=== PATIENT | female | born 1935 | race Caucasian/White ===

== ENCOUNTER 2017-11-03 10:16 | Outpatient (CLI) | payer MEDICARE, OTHER ==
[2017-11-03 16:18] LABS: CREATININE 1.3 mg/dL (0.4-1.0)
== END 2017-11-03 10:17 | disposition home or self-care (01) ==
LOC: LAB.R 10:16
PROVIDERS: ATTEND Orthopaedic Surgery
DX: Z01.812 Encounter for preprocedural laboratory examination (principal); M19.011 Primary osteoarthritis, right shoulder
CPT/HCPCS: 82565

== ENCOUNTER 2017-11-11 10:08 | Outpatient (CLI) | payer MEDICARE, OTHER ==
[2017-11-11] MEDS ORDERED: IOTHALAMATE MEGLUMINE 50 ML VIAL ONE (10:22)
[2017-11-11] MEDS ORDERED: BUFFERED LIDOCAINE 10 ML SYRINGE IU ONE (10:45)
[2017-11-11] MEDS ORDERED: IOTHALAMATE MEGLUMINE 50 ML VIAL IVP ONE ×2 (11:17→12:00)
[2017-11-11] MEDS: BUFFERED LIDOCAINE 10 ML SYRINGE IU ONE ×2 (11:19→11:20)
--- NOTE | 2017-11-11 13:26 | XRAY Report ---
FLUOROSCOPICALLY GUIDED RIGHT SHOULDER INJECTION FOR CT ARTHROGRAM: 11/11/2017 CLINICAL INDICATION: Arthritis. FINDINGS: Following obtaining informed consent, the patient's right shoulder was prepped and draped in the usual sterile fashion. The skin and soft tissues were the anesthetized with lidocaine. A spinal needle was inserted into the right glenohumeral joint, and following confirmation of needle positioning, a combination of iodinated contrast and lidocaine was injected intraarticularly. The patient tolerated the procedure well. No immediate complications. Spot image reveals no evidence of contrast extravasation. IMPRESSION: SUCCESSFUL RIGHT SHOULDER INJECTION FOR CT ARTHROGRAM. FLUOROSCOPY TIME: 37 seconds; 1 spot image obtained. TD: 11/11/2017 13:25 MTDDonnell
--- NOTE | 2017-11-11 14:24 | CT Report ---
EXAM: RIGHT SHOULDER CT ARTHROGRAM WITH CONTRAST EXAM DATE: 11/11/2017 11:47 AM. CLINICAL HISTORY: Arthritis of right shoulder region. COMPARISON: None. TECHNIQUE: Thin-section axial images were acquired of the shoulder after an arthrographic injection d ictated under a separate exam. Post-processing: Oblique coronal and sagittal reformats. Other: None. In accordance with CT protocol optimization, one or more of the following dose reduction techniques w ere utilized for this exam: automated exposure control, adjustment of mA and/or KV based on patient s ize, or use of iterative reconstructive technique. FINDINGS: Bones: There is moderate generalized osteopenia. There are no visible fractures. Acromioclavicular Region: The patient has a type II acromion. The acromioclavicular joint is normal. Contrast fills the subacromial bursa. Glenohumeral Joint: The glenohumeral joint space is obliterated. There are subchondral cysts and oste ophytes affecting both the humeral head and bony glenoid. The findings are consistent with severe ost eoarthritis. There is thickening of the synovium consistent with synovitis. Musculature: There is a full-thickness tear of the anterior fibers of supraspinatus measuring approxi mately 16 x 15 mm with mild atrophy. The remaining fibers appear partially torn. There is a high-grad e partial-thickness tear subscapularis. There is mild partial-thickness tearing of the humeral surfac e fibers of infraspinatus. Other: The visualized lungs are unremarkable. No lymphadenopathy in the visualized axilla. IMPRESSION: 1. Severe glenohumeral osteoarthritis. 2. Full-thickness tear of the anterior fibers of supraspinatus. High-grade partial-thickness tears of the remainder of the supraspinatus tendon. 3. High-grade partial-thickness tear of subscapularis. Low-grade partial thickness tear of infraspina tus. 4. Severe glenohumeral osteoarthritis with thickening of the synovium suggestive of synovitis. [facility] MUSCULOSKELETAL RADIOLOGY SECTION Referring Provider Line: [phone] SITE ID: [id number]
== END 2017-11-11 10:09 | disposition home or self-care (01) ==
LOC: DI 10:08
PROVIDERS: ATTEND Orthopaedic Surgery
DX: Z01.818 Encounter for other preprocedural examination (principal); M19.011 Primary osteoarthritis, right shoulder; M75.101 Unspecified rotator cuff tear or rupture of right shoulder, not specified as traumatic
CPT/HCPCS: 23350; 36415; 73201; 77002; 80048; 85025; Q9961

== ENCOUNTER 2017-11-11 11:20 | Outpatient (CLI) | payer MEDICARE, OTHER ==
[2017-11-11 11:37] LABS: BASOPHILS % (AUTO) 0.9 %; EOSINOPHILS # (AUTO) 0.1 10^3/uL (0.0-0.7); EOSINOPHILS % (AUTO) 1.9 %; HGB - HEMOGLOBIN 12.8 g/dL (12.0-16.0); LYMPHOCYTES # (AUTO) 1.4 10^3/uL (1.5-3.5); LYMPHOCYTES % (AUTO) 24.9 %; MEAN CORPUSCULAR HEMOGLOBIN 30.1 pg (27.0-31.0); MEAN CORPUSCULAR HGB CONC 34.1 g/dL (32.0-36.0); MEAN CORPUSCULAR VOLUME 88.4 fL (81.0-99.0); MEAN PLATELET VOLUME 7.1 fL (7.9-10.8); MONOCYTES # (AUTO) 0.3 10^3/uL (0.0-1.0); MONOCYTES % (AUTO) 5.8 %; NEUTROPHILS # (AUTO) 3.7 10^3/uL (1.5-6.6); NEUTROPHILS % (AUTO) 66.5 %; PLT - PLATELET COUNT 190 10^3/uL (130-450); RED BLOOD COUNT 4.26 10^6/uL (4.20-5.40); WHITE BLOOD COUNT 5.5 x10^3/uL (4.8-10.8)
[2017-11-11 11:45] LABS: CREATININE 1.1 mg/dL (0.4-1.0)
== END 2017-11-11 11:21 | disposition home or self-care (01) ==
LOC: LAB 11:20
PROVIDERS: ATTEND Orthopaedic Surgery
DX: Z01.818 Encounter for other preprocedural examination (principal)
CPT/HCPCS: 36415; 80048; 85025

== ENCOUNTER 2018-02-01 09:36 | Outpatient (CLI) | payer MEDICARE, OTHER ==
[2018-02-01 15:01] LABS: BASOPHILS # (AUTO) 0.1 10^3/uL (0.0-0.1); BASOPHILS % (AUTO) 1.1 %; EOSINOPHILS # (AUTO) 0.2 10^3/uL (0.0-0.7); EOSINOPHILS % (AUTO) 2.8 %; HGB - HEMOGLOBIN 12.5 g/dL (12.0-16.0); LYMPHOCYTES # (AUTO) 1.4 10^3/uL (1.5-3.5); LYMPHOCYTES % (AUTO) 24.4 %; MEAN CORPUSCULAR HEMOGLOBIN 28.7 pg (27.0-31.0); MEAN CORPUSCULAR VOLUME 87.1 fL (81.0-99.0); MEAN PLATELET VOLUME 8.4 fL (7.9-10.8); MONOCYTES # (AUTO) 0.3 10^3/uL (0.0-1.0); MONOCYTES % (AUTO) 4.6 %; NEUTROPHILS # (AUTO) 3.8 10^3/uL (1.5-6.6); NEUTROPHILS % (AUTO) 67.1 %; PLT - PLATELET COUNT 208 10^3/uL (130-450); RED BLOOD COUNT 4.34 10^6/uL (4.20-5.40); RED CELL DISTRIBUTION WIDTH 13.4 % (12.0-15.0); WHITE BLOOD COUNT 5.6 x10^3/uL (4.8-10.8)
[2018-02-01 15:17] LABS: ALBUMIN 3.6 g/dL (3.2-5.5); ALBUMIN/GLOBULIN RATIO 1.4 (1.0-2.2); ALKALINE PHOSPHATASE 61 IU/L (42-121); ALT ALANINE AMINOTRANSFERASE 19 IU/L (10-60); AST ASPARTATE AMINOTRANSFERASE 25 IU/L (10-42); BILIRUBIN,TOTAL 0.9 mg/dL (0.2-1.0); BUN - BLOOD UREA NITROGEN 27 mg/dL (6-20); CARBON DIOXIDE - CO2 28 mmol/L (21-32); CHLORIDE 99 mmol/L (101-111); CHOL/HDL RATIO 2.8 (<4.4); CHOLESTEROL 232 mg/dL; CREATININE 1.2 mg/dL (0.4-1.0); GFR - MDRD 43 (>89); GLUCOSE 79 mg/dL (70-100); HDL CHOLESTEROL 84 mg/dL; LDL CHOLESTEROL,CALCULATED 119 mg/dL; LDL/HDL RATIO 1.4 (<4.4); SODIUM 137 mmol/L (135-145); TOTAL PROTEIN 6.2 g/dL (6.7-8.2); VLDL CHOLESTEROL 29 mg/dL
== END 2018-02-01 09:37 ==
LOC: LAB.R 09:36
PROVIDERS: ATTEND Internal Medicine
DX: I12.9 Hypertensive chronic kidney disease with stage 1 through stage 4 chronic kidney disease, or unspecified chronic kidney disease (principal); N18.9 Chronic kidney disease, unspecified; R76.0 Raised antibody titer; R60.9 Edema, unspecified; E78.5 Hyperlipidemia, unspecified
CPT/HCPCS: 80053; 80061; 83721; 84443; 85025

== ENCOUNTER 2018-03-29 18:58 | Emergency (ER) | payer MEDICARE, OTHER ==
[2018-03-29] MEDS ORDERED: ACETAMINOPHEN 325 MG TABLET PO STA (20:14)
--- NOTE | 2018-03-29 20:16 | ED Physician Documentation ---
History of Present Illness - Stated complaint Stated Complaint: GLF - Chief complaint Chief Complaint: Laceration - History obtained from History obtained from: Patient, Family - History of Present Illness Timing: How many hours ago (2) Pain level max: 7 Pain level now: 5 Improved by: nothing Worsened by: nothing - Additonal information Additional information: Patient is an 82-year-old female who presents to the emergency department after tripping in her raspberries today and hitting a fence post. Unsure if she lost consciousness. Does have a headache and posterior neck pain. No numbness or tingling. Also sustained a laceration to the left ear. States her tetanus shot is up-to-date. Review of Systems Ten Systems: 10 systems reviewed and negative Constitutional: denies: Fever, Chills Nose: denies: Rhinorrhea / runny nose, Congestion Respiratory: denies: Cough GI: denies: Abdominal Pain, Nausea, Vomiting, Diarrhea : denies: Dysuria, Frequency, Hesitancy Skin: denies: Rash Musculoskeletal: reports: Neck pain (mild mid c-spine pain). denies: Back pain Neurologic: denies: Generalized weakness, Focal weakness, Numbness, Confused, Altered mental status PD PAST MEDICAL HISTORY - Past Medical History Past Medical History: Yes Cardiovascular: Hypertension - Past Surgical History Past Surgical History: No - Present Medications Home Medications: Ambulatory Orders Medication Instructions Recorded Confirmed Furosemide 80 mg PO DAILY 08/27/14 09/03/14 Gabapentin 300 mg PO TID 08/27/14 09/03/14 Hydroxychloroquine Sulfate 200 mg PO BID 08/27/14 09/03/14 Losartan [Cozaar] 25 mg PO QPM 08/27/14 09/03/14 Naproxen Sodium [Aleve] 220 mg PO BID PRN 08/27/14 08/27/14 PARoxetine HCl [Paroxetine HCl] 10 mg PO DAILY 08/27/14 09/03/14 Pravastatin Sodium 40 mg PO QPM 08/27/14 09/03/14 Tramadol HCl [Ultram] 50 mg PO TID PRN 08/27/14 09/03/14 Loperamide [Imodium] 2 gm ORAL DAILY 09/03/14 09/03/14 Cephalexin [Keflex] 500 mg PO Q6H #28 capsule 03/29/18 - Allergies Allergies/Adverse Reactions: Allergies Allergy/AdvReac Type Severity Reaction Status Date / Time codeine AdvReac Intermediate Hallucinati Verified 03/29/18 19:06 ons - Social History Does the pt smoke?: No Does the pt have substance abuse?: No - Family History Family history: reports: Non contributory PD ED PE NORMAL - Vitals Vital signs reviewed: Yes - General General: Alert and oriented X 3, No acute distress - HEENT HEENT: Atraumatic, PERRL, Moist mucous membranes, Pharynx benign, Other (L ear - 2x2cm circular laceration to superior pinna. cartilage involved. posterior aspect intact) - Neck Neck: Other (mild mid c-spine ttp. no stepoff or deformity. ) - Cardiac Cardiac: RRR, Strong equal pulses - Respiratory Respiratory: No respiratory distress, Clear bilaterally - Abdomen Abdomen: Soft, Non tender, Non distended - Back Back: No spinal TTP - Derm Derm: Warm and dry, No rash - Extremities Extremities: No deformity, No tenderness to palpate - Neuro Neuro: Alert and oriented X 3 - Psych Psych: Normal mood, Normal affect Results - Vitals Vitals: Vital Signs - 24 hr 03/29/18 03/29/18 19:02 23:10 Temperature 36.8 C Heart Rate 102 H 74 Respiratory 18 16 Rate Blood Pressure 150/92 H 185/94 H O2 Saturation 98 99 Oxygen O2 Source [] Room air O2 Source [] Room air O2 Source Room air - Rads (name of study) head CT Radiology: Prelim report reviewed, EMP read contemporaneously, See rad report ( No acute abnormality) Cervical spine CT Radiology: Prelim report reviewed, EMP read contemporaneously, See rad report ( No acute abnormality) Procedures - Laceration (location) L ear Length in cm: 4 Wound type: Curved, Flap, Clean Neurovascular status: Sensory intact, Vascular intact Tendon involvement: Other (auricular cartilage involved) Anesthesia: OTH (topical lidocaine) Wound Preparation: Irrigated copiously NS, Wound explored, To the base Skin layer closure: Nylon, Dermabond, Size #-0 - enter number (6), Sutures - enter # (5) Other: Patient tolerated well, No complications, Neurovascular intact, Dressing applied, Tetanus UTD Complexity: Simple PD MEDICAL DECISION MAKING - ED course Complexity details: reviewed results, re-evaluated patient, considered differential, d/w patient, d/w family, d/w solutions architect consultant ED course: Patient is an 82-year-old female who presents after a fall today. She sustained a laceration of the left pinna that involved the auricular cartilage. This was repaired in the emergency department and cartilage appears to all be covered with skin at this point. Dermabond was also utilized for a portion of the wound. I did discuss the case with Dr. Cedillo, ENT labor union business representative who will follow her up in the office in the next day or 2 to check on the wound and see if it needs revision. Will also place her on Keflex. Warnings of infection and instructions on wound care given at bedside. Also counseled on how to minimize scarring. No acute findings on head CT or cervical spine CT. Patient and family counseled regarding signs and symptoms for which I believe and urgent re- evaluation would be necessary. Patient with good understanding of and agreement to plan and is comfortable going home at this time This document was made in part using voice recognition software. While efforts are made to proofread this document, sound alike and grammatical errors may occur. - Sepsis Event Vital Signs: Vital Signs - 24 hr 03/29/18 03/29/18 19:02 23:10 Temperature 36.8 C Heart Rate 102 H 74 Respiratory 18 16 Rate Blood Pressure 150/92 H 185/94 H O2 Saturation 98 99 Oxygen O2 Source [] Room air O2 Source [] Room air O2 Source Room air Departure - Departure Disposition: 01 Home, Self Care Clinical Impression: Head injury Qualifiers: Encounter type: initial encounter Qualified Code(s): S09.90XA - Unspecified injury of head, initial encounter Laceration of ear Qualifiers: Encounter type: initial encounter Laterality: left Qualified Code(s): S01.312A - Laceration without foreign body of left ear, initial encounter Condition: Good Instructions: ED Laceration All Follow-Up: Dinh Bradley MD [Primary Care Provider] - [facility] [Provider Group] - Within 3 Days Prescriptions: Cephalexin [Keflex] 500 mg PO Q6H #28 capsule Comments: Take all antibiotics until gone. Make sure to follow up closely with ENT for further care. Return if you worsen. Discharge Date/Time: 03/29/18 23:45
--- NOTE | 2018-03-29 21:19 | CT Report ---
Procedure Date: 03/29/2018 Accession Number: [id number] / [id number] Procedure: CT - Head W/O CPT Code: FULL RESULT: EXAM: CT HEAD EXAM DATE: 03/29/2018 08:39 PM. CLINICAL HISTORY: Fall, head injury, headache. COMPARISON: None. TECHNIQUE: Multiaxial CT images were obtained from the foramen magnum to the vertex. Reformats: Sagittal and coronal. IV contrast: None. In accordance with CT protocol optimization, one or more of the following dose reduction techniques were utilized for this exam: automated exposure control, adjustment of mA and/or KV based on patient size, or use of iterative reconstructive technique. FINDINGS: Parenchyma: No intraparenchymal hemorrhage. No evidence of mass, midline shift, or CT findings of acute infarction. Hammond-white differentiation is distinct. Diffuse chronic microangiopathic white matter changes are evident. Extraaxial Spaces: Normal for age. No subdural or epidural collections identified. Ventricles: The ventricles and cortical sulci are enlarged, consistent with age-related tissue loss. Sinuses and orbits: Imaged paranasal sinuses, orbits, and mastoids show no significant abnormality. Bones: No evidence of fracture or calvarial defect. Other: Status post bilateral cataract procedures. Small left parietal scalp soft tissue laceration and hematoma. No radiopaque foreign bodies are noted. IMPRESSION: Generalized age-related cortical atrophic changes without evidence of acute intracranial abnormality. [facility]
--- NOTE | 2018-03-29 21:43 | CT Report ---
Procedure Date: 03/29/2018 Accession Number: [id number] / [id number] Procedure: CT - Cervical Spine W/O CPT Code: FULL RESULT: EXAM: CT CERVICAL SPINE WITHOUT CONTRAST. DATE: 03/29/2018 08:58 PM. HISTORY: Fall, neck pain. COMPARISONS: None. TECHNIQUE: Thin-section axial images were acquired of the cervical spine without contrast. Post-processing: Coronal and sagittal reformats. Other: None. In accordance with CT protocol optimization, one or more of the following dose reduction techniques were utilized for this exam: automated exposure control, adjustment of mA and/or KV based on patient size, or use of iterative reconstructive technique. FINDINGS: Alignment: 2 mm of C3 on C4 anterolisthesis, 2 mm of C4 on C5 and C6 on C7 retrolisthesis are likely degenerative. Gentle convex to the left curvature of the mid cervical spine. Bones: Osteopenic patient. No acute fracture or bone lesion. Interspace Levels/Facets: C1-C2: Moderate narrowing within the C1 arch and dens articulation with partially calcified pannus surrounding the tip of the dens. C2-C3: Moderate disk narrowing. No significant central canal or foraminal stenosis. C3-C4: Mild disk narrowing. No significant central canal or foraminal stenosis. Mild bilateral facet arthropathy. C4-C5: Marked disk narrowing with prominent disk osteophyte complex and uncovertebral joint hypertrophy results in [id number] right foraminal stenosis. Mild left facet arthropathy. C5-C6: Moderate to marked disk narrowing with prominent disk osteophyte complex and uncovertebral joint hypertrophy results in mild right foraminal stenosis. C6-C7: Marked disk narrowing with irregularity of the endplates noted at C6-C7. No significant central canal or foraminal stenosis. C7-T1: Mild disk narrowing. No significant central canal or foraminal stenosis. Musculature: Normal. No fatty atrophy. Other: The paravertebral and prevertebral soft tissues are unremarkable. The lung apices are clear. IMPRESSION: 1. No acute fracture. 2. Multilevel degenerative disk disease as above. [facility]
[2018-03-29] MEDS ORDERED: LIDOCAINE JELLY 2% 5 ML TUBE TOP STA (22:04)
[2018-03-29] MEDS ORDERED: LIDOCAINE 2% 10 ML MDV SUBQ STA (22:55)
[2018-03-29 23:11] VITALS: BP 185/94
[2018-03-29] MEDS ORDERED: cephALEXin 250 MG CAPSULE PO STA (23:25)
== END 2018-03-29 23:45 | disposition home or self-care (01) ==
LOC: ED 18:58
DX: S09.90XA Unspecified injury of head, initial encounter (principal); S01.312A Laceration without foreign body of left ear, initial encounter; W01.198A Fall on same level from slipping, tripping and stumbling with subsequent striking against other object, initial encounter; Y93.01 Activity, walking, marching and hiking; Y92.89 Other specified places as the place of occurrence of the external cause
CPT/HCPCS: 12013; 70450; 72125; 99283; A9270; J3490; 99284

== ENCOUNTER 2018-06-06 10:19 | Outpatient (CLI) | payer MEDICARE, OTHER ==
[~2018-06-06 10:19] MED LIST: IOTHALAMATE MEGLUMINE 50 ML VIAL ONE
[2018-06-06] MEDS ORDERED: BUFFERED LIDOCAINE 10 ML SYRINGE IU ONE ×2 (14:34)
[2018-06-06] MEDS: IOTHALAMATE MEGLUMINE 50 ML VIAL IVP ONE ×2 (14:40→14:53)
--- NOTE | 2018-06-06 16:33 | XRAY Report ---
Reason: ARTHRITIS OF LT SHOULDER Procedure Date: 06/06/2018 Accession Number: [id number] / [id number] Procedure: FL - Arthrogram Needle Placement CPT Code: FULL RESULT: EXAM: RIGHT/LEFT SHOULDER ARTHROGRAPHIC INJECTION WITH FLUOROSCOPIC GUIDANCE EXAM DATE: 06/06/2018 11:45 AM. CLINICAL HISTORY: Arthritis of left shoulder. COMPARISON: None. TECHNIQUE: The risks, benefits, and alternatives of the procedure were discussed with the patient. All questions were answered. Written and verbal consent were obtained. The glenohumeral joint was marked under fluoroscopy and prepped and draped in a sterile manner. Local anesthesia was performed with 1% lidocaine. A 22-gauge needle was then inserted into the glenohumeral joint. 10 mL of a solution containing 75% 1% lidocaine, 25% iodinated contrast was then injected. The needle was removed without immediate complication. Other: None. Fluoroscopy Time: 0.2 minutes. FINDINGS: Bones and joints: Left hemiarthroplasty. Injection: Fluoroscopic images demonstrate needle placement and contrast in the glenohumeral joint. Contrast is noted to apparently freely leave the joint capsule. IMPRESSION: Successful fluoroscopically guided arthrographic injection of the shoulder. [facility]
--- NOTE | 2018-06-07 19:48 | CT Report ---
Reason: ARTHROGRAM - ARTHRITIS OF LT SHOULDER Procedure Date: 06/06/2018 Accession Number: [id number] / [id number] Procedure: CT - Upper Extremity Left W/ CPT Code: FULL RESULT: EXAM: LEFT SHOULDER CT ARTHROGRAM WITH CONTRAST. EXAM DATE: 06/06/2018 11:37 AM. CLINICAL HISTORY: Arthrogram - arthritis of left shoulder. COMPARISON: None. TECHNIQUE: Thin-section axial images were acquired of the shoulder after an arthrographic injection dictated under a separate exam. Post-processing: Oblique coronal and sagittal reformats. Other: None. In accordance with CT protocol optimization, one or more of the following dose reduction techniques were utilized for this exam: automated exposure control, adjustment of mA and/or KV based on patient size, or use of iterative reconstructive technique. FINDINGS: Bones: Streak artifact from resurfacing device at the humeral head mildly limits evaluation. No gross lucency adjacent to the prosthesis. No fracture. Acromioclavicular Region: Type II acromion. Postsurgical change versus mechanical wear at the undersurface of the acromion. Mild degenerative change at the acromioclavicular joint. Glenohumeral Joint: Large amount of contrast within the joint. Mild synovitis. No focal loose bodies. Minimal superior subluxation of the humeral head. Mild mechanical wear at the glenoid. Musculature: Evaluation limited due to artifact and absence of a noncontrast preinjection scan. No gross joint-sided tear of the supraspinatus or infraspinatus tendons. Suggestion of contrast imbibition at the mid to superior insertion subscapularis tendon. No focal fatty atrophy. Other: The visualized lungs are unremarkable. No lymphadenopathy in the visualized axilla. IMPRESSION: 1. Streak artifact from humeral head resurfacing device mildly limits evaluation. 2. No lucency adjacent to the prosthesis. 3. Mild mechanical wear at the glenoid. 4. Diffuse glenohumeral synovitis. 5. No gross joint-sided tear of the supraspinatus or infraspinatus tendons. 6. Suggestion of partial thickness undersurface tear superior insertion subscapularis tendon. [facility] MUSCULOSKELETAL RADIOLOGY SECTION
== END 2018-06-06 10:20 | disposition home or self-care (01) ==
LOC: DI 10:19
PROVIDERS: ATTEND Orthopaedic Surgery
DX: M19.012 Primary osteoarthritis, left shoulder (principal); M65.812 Other synovitis and tenosynovitis, left shoulder
CPT/HCPCS: 73201; 77002; Q9961

== ENCOUNTER 2018-06-21 10:01 | Outpatient (CLI) | payer MEDICARE, OTHER ==
--- NOTE | 2018-06-22 11:31 | Mammography Report ---
Reason: SCREENING MAMMOGRAM Procedure Date: 06/21/2018 Accession Number: [id number] / [id number] Procedure: [facility] - Screening Mammo Dig Bilat CPT Code: FULL RESULT: EXAM: Screening Mammo Dig Bilat DATE: 06/21/2018 10:57 AM CLINICAL HISTORY: Routine screening TECHNIQUE: Bilateral CC and MLO views were obtained. COMPARISON: 07/06/2016, 01/11/2014, 06/21/2011 and 02/27/2010 FINDINGS: There are scattered fibroglandular densities. There is no significant interval change. No suspicious masses, clustered microcalcifications, or regions of architectural distortion are identified. Scattered benign-appearing calcifications are stable. IMPRESSION: Benign findings RECOMMENDATION: Routine annual screening unless otherwise clinically indicated. BIRADS CATEGORY 2: Benign findings STANDARD QUALIFYING STATEMENTS: 1. This examination was reviewed with the aid of Computer-Aided Detection (CAD). 2. A negative or benign imaging report should not delay biopsy if clinically suspicious findings are present. Consider surgical consultation if warrented. More than 5% of cancers are not identified by imaging. 3. Dense breasts may obscure an underlying neoplasm.
== END 2018-06-21 10:02 | disposition home or self-care (01) ==
LOC: DI 10:01
PROVIDERS: ATTEND Internal Medicine
DX: Z12.31 Encounter for screening mammogram for malignant neoplasm of breast (principal)
CPT/HCPCS: 77067

== ENCOUNTER 2019-03-12 11:11 | Outpatient (CLI) | payer MEDICARE, OTHER ==
[2019-03-12 11:26] LABS: BASOPHILS # (AUTO) 0.1 10^3/uL (0.0-0.1); BASOPHILS % (AUTO) 1.1 %; EOSINOPHILS # (AUTO) 0.2 10^3/uL (0.0-0.7); EOSINOPHILS % (AUTO) 2.6 %; HGB - HEMOGLOBIN 12.2 g/dL (12.0-16.0); LYMPHOCYTES # (AUTO) 1.2 10^3/uL (1.5-3.5); LYMPHOCYTES % (AUTO) 19.3 %; MEAN CORPUSCULAR HEMOGLOBIN 29.6 pg (27.0-31.0); MEAN CORPUSCULAR HGB CONC 32.3 g/dL (32.0-36.0); MEAN CORPUSCULAR VOLUME 91.7 fL (81.0-99.0); MONOCYTES # (AUTO) 0.2 10^3/uL (0.0-1.0); MONOCYTES % (AUTO) 3.6 %; NEUTROPHILS # (AUTO) 4.7 10^3/uL (1.5-6.6); NEUTROPHILS % (AUTO) 73.2 %; PLT - PLATELET COUNT 192 10^3/uL (130-450); RED BLOOD COUNT 4.12 10^6/uL (4.20-5.40); WHITE BLOOD COUNT 6.4 x10^3/uL (4.8-10.8)
[2019-03-12 11:46] LABS: ALBUMIN 3.6 g/dL (3.2-5.5); ALBUMIN/GLOBULIN RATIO 1.4 (1.0-2.2); BILIRUBIN,TOTAL 0.7 mg/dL (0.2-1.0); CALCIUM 9.1 mg/dL (8.5-10.3); CREATININE 1.2 mg/dL (0.4-1.0); TOTAL PROTEIN 6.2 g/dL (6.7-8.2)
[2019-03-12 12:53] LABS: THYROID STIMULATING HORMONE 4.27 uIU/mL (0.34-5.60)
[2019-03-12 12:55] LABS: FREE T4 (FREE THYROXINE) 0.93 ng/dL (0.58-1.64)
== END 2019-03-12 11:12 | disposition home or self-care (01) ==
LOC: LAB 11:11
PROVIDERS: ATTEND Family Medicine
DX: R76.0 Raised antibody titer (principal); R60.9 Edema, unspecified
CPT/HCPCS: 36415; 80053; 84439; 84443; 84481; 85025

== ENCOUNTER 2019-08-23 14:53 | Outpatient (CLI) | payer MEDICARE, OTHER ==
[2019-08-23 15:17] LABS: BASOPHILS # (AUTO) 0.1 10^3/uL (0.0-0.1); BASOPHILS % (AUTO) 1.2 %; EOSINOPHILS # (AUTO) 0.2 10^3/uL (0.0-0.7); EOSINOPHILS % (AUTO) 3.5 %; HGB - HEMOGLOBIN 12.1 g/dL (12.0-16.0); LYMPHOCYTES # (AUTO) 1.5 10^3/uL (1.5-3.5); LYMPHOCYTES % (AUTO) 26.7 %; MEAN CORPUSCULAR HEMOGLOBIN 29.5 pg (27.0-31.0); MEAN CORPUSCULAR HGB CONC 31.8 g/dL (32.0-36.0); MEAN CORPUSCULAR VOLUME 92.9 fL (81.0-99.0); MEAN PLATELET VOLUME 8.7 fL (7.9-10.8); MONOCYTES # (AUTO) 0.4 10^3/uL (0.0-1.0); MONOCYTES % (AUTO) 6.8 %; NEUTROPHILS # (AUTO) 3.6 10^3/uL (1.5-6.6); NEUTROPHILS % (AUTO) 61.6 %; PLT - PLATELET COUNT 185 10^3/uL (130-450); RED CELL DISTRIBUTION WIDTH 13.6 % (12.0-15.0); WHITE BLOOD COUNT 5.8 x10^3/uL (4.8-10.8)
[2019-08-23 15:30] LABS: CALCIUM 9.2 mg/dL (8.5-10.3); CREATININE 1.1 mg/dL (0.4-1.0)
== END 2019-08-23 14:54 | disposition home or self-care (01) ==
LOC: LAB 14:53
PROVIDERS: ATTEND Physician Assistant
DX: Z01.818 Encounter for other preprocedural examination (principal); M17.12 Unilateral primary osteoarthritis, left knee
CPT/HCPCS: 36415; 80048; 85025; 93005

== ENCOUNTER 2019-10-03 09:28 | Outpatient (CLI) | payer MEDICARE, OTHER ==
[2019-10-03 09:49] LABS: BASOPHILS # (AUTO) 0.1 10^3/uL (0.0-0.1); BASOPHILS % (AUTO) 1.2 %; EOSINOPHILS # (AUTO) 0.4 10^3/uL (0.0-0.7); EOSINOPHILS % (AUTO) 7.7 %; HGB - HEMOGLOBIN 10.7 g/dL (12.0-16.0); LYMPHOCYTES % (AUTO) 18.8 %; MEAN CORPUSCULAR HEMOGLOBIN 29.4 pg (27.0-31.0); MEAN CORPUSCULAR HGB CONC 31.8 g/dL (32.0-36.0); MEAN CORPUSCULAR VOLUME 92.6 fL (81.0-99.0); MEAN PLATELET VOLUME 8.5 fL (7.9-10.8); MONOCYTES # (AUTO) 0.4 10^3/uL (0.0-1.0); MONOCYTES % (AUTO) 7.9 %; NEUTROPHILS # (AUTO) 3.2 10^3/uL (1.5-6.6); PLT - PLATELET COUNT 198 10^3/uL (130-450); RED BLOOD COUNT 3.64 10^6/uL (4.20-5.40); RED CELL DISTRIBUTION WIDTH 13.2 % (12.0-15.0)
[2019-10-03 09:59] LABS: CALCIUM 8.6 mg/dL (8.5-10.3); CREATININE 1.3 mg/dL (0.4-1.0)
== END 2019-10-03 09:29 | disposition home or self-care (01) ==
LOC: LAB 09:28
PROVIDERS: ATTEND Family Medicine
DX: E78.5 Hyperlipidemia, unspecified (principal); Z96.652 Presence of left artificial knee joint; I10 Essential (primary) hypertension
CPT/HCPCS: 36415; 80048; 85025

== ENCOUNTER 2020-02-19 11:15 | Outpatient (CLI) | payer MEDICARE, OTHER ==
[2020-02-19 11:42] LABS: BASOPHILS # (AUTO) 0.1 10^3/uL (0.0-0.1); EOSINOPHILS # (AUTO) 0.3 10^3/uL (0.0-0.7); EOSINOPHILS % (AUTO) 3.9 %; HGB - HEMOGLOBIN 9.3 g/dL (12.0-16.0); LYMPHOCYTES # (AUTO) 1.1 10^3/uL (1.5-3.5); LYMPHOCYTES % (AUTO) 15.1 %; MEAN CORPUSCULAR HEMOGLOBIN 25.3 pg (27.0-31.0); MEAN CORPUSCULAR HGB CONC 30.1 g/dL (32.0-36.0); MEAN PLATELET VOLUME 8.7 fL (7.9-10.8); MONOCYTES # (AUTO) 0.5 10^3/uL (0.0-1.0); MONOCYTES % (AUTO) 6.2 %; NEUTROPHILS # (AUTO) 5.3 10^3/uL (1.5-6.6); NEUTROPHILS % (AUTO) 73.4 %; PLT - PLATELET COUNT 302 10^3/uL (130-450); RED BLOOD COUNT 3.68 10^6/uL (4.20-5.40); RED CELL DISTRIBUTION WIDTH 15.2 % (12.0-15.0); WHITE BLOOD COUNT 7.2 x10^3/uL (4.8-10.8)
[2020-02-19 11:55] LABS: CALCIUM 8.9 mg/dL (8.5-10.3); CREATININE 2.1 mg/dL (0.4-1.0)
[2020-02-19 12:14] LABS: THYROID STIMULATING HORMONE 5.16 uIU/mL (0.34-5.60)
[2020-02-19 12:15] LABS: FREE T3 2.96 pg/mL (2.5-3.9)
[2020-02-19 12:16] LABS: FREE T4 (FREE THYROXINE) 1.2 ng/dL (0.58-1.64)
== END 2020-02-19 11:16 | disposition home or self-care (01) ==
LOC: LAB 11:15
PROVIDERS: ATTEND Family Medicine
DX: R60.0 Localized edema (principal); N18.3 Chronic kidney disease, stage 3 (moderate); R63.5 Abnormal weight gain; M79.7 Fibromyalgia; I12.9 Hypertensive chronic kidney disease with stage 1 through stage 4 chronic kidney disease, or unspecified chronic kidney disease
CPT/HCPCS: 36415; 80048; 83880; 84439; 84443; 84481; 85025; 85651

== ENCOUNTER 2020-02-20 10:02 | Outpatient (CLI) | payer MEDICARE, OTHER | END 2020-02-20 10:03 | disposition home or self-care (01) | LOC: DI 10:02 | PROVIDERS: ATTEND Family Medicine | DX: I51.7 Cardiomegaly (principal) | CPT/HCPCS: 93306 ==

== ENCOUNTER 2020-03-17 09:11 | Outpatient (CLI) | payer MEDICARE, OTHER | END 2020-03-17 09:12 | disposition critical access hospital (66) | LOC: EMS 09:11 | PROVIDERS: ATTEND Surgery | DX: R42 Dizziness and giddiness (principal); R53.1 Weakness; R63.4 Abnormal weight loss | CPT/HCPCS: A0425; A0427 ==

== ENCOUNTER 2020-03-17 09:20 | Emergency (ER) | payer MEDICARE, OTHER ==
[2020-03-17] MEDS ORDERED: LIDOCAINE VISCOUS 2% 15 ML UDC MM STA (09:44)
[2020-03-17] MEDS ORDERED: ONDANSETRON 4 MG/2 ML VIAL IVP STA (09:44)
[2020-03-17] MEDS ORDERED: SODIUM CHLORIDE 0.9% 1,000 ML IV STA (09:44)
[2020-03-17] MEDS ORDERED: diphenhydrAMINE ELIXIR 25 MG/10 ML UDC PO STA (09:45)
[2020-03-17] MEDS ORDERED: KETOROLAC 15 MG/ML VIAL IVP STA (09:45)
[2020-03-17] MEDS ORDERED: MORPHINE 2 MG/ML CARPUJECT IVP STA (09:45)
--- NOTE | 2020-03-17 09:46 | ED Physician Documentation ---
PD HPI HEENT - Stated complaint Stated Complaint: DEHYDRATION - Chief complaint Chief Complaint: General - History obtained from History obtained from: Patient, Family, EMS - History of Present Illness Timing - onset: How many weeks ago (2) Timing - duration: Weeks (2) Timing - details: Gradual onset, Still present Location: Throat (She started with some sore naris in the back of the throat and roof of the mouth and along the gumline and tongue couple of weeks ago and has persisted with soreness. She was prescribed "magic mouthwash" but has not improved and the last several days has had increased pain with swallowing.) Worsens: Swalllowing (Food in particular but even fluids are painful and making it difficult to swallow. She is feeling generally lightheaded and weak the last few days.). No: Temperatures Associated symptoms: Unable to swallow. No: Fever, Congestion, Swollen nodes, Cough Similar symptoms before: Has not had sx before Recently seen: Clinic (Dx with oral "magic mouthwash" without improvement.) Review of Systems Constitutional: reports: Myalgias, Fatigue, Weight Loss (about 20 lbs in past 2 weeks). denies: Fever, Chills Nose: denies: Rhinorrhea / runny nose, Congestion Throat: reports: Oral lesions / sores, Sore throat. denies: Dental pain / toothache Cardiac: denies: Chest pain / pressure Respiratory: denies: Dyspnea, Cough GI: reports: Nausea. denies: Abdominal Pain, Vomiting, Diarrhea Skin: denies: Rash, Lesions PD PAST MEDICAL HISTORY - Past Medical History Cardiovascular: Hypertension - Past Surgical History Past Surgical History: No - Present Medications Home Medications: Ambulatory Orders Medication Instructions Recorded Confirmed Gabapentin 600 mg PO QDBREAKFAST 08/27/14 03/17/20 Hydroxychloroquine Sulfate 200 mg PO BID 08/27/14 03/17/20 Losartan [Cozaar] 75 mg PO DAILY 08/27/14 03/17/20 PARoxetine HCL [Paroxetine HCl] 10 mg PO DAILY 08/27/14 03/17/20 Acetaminophen [Tylenol] 650 mg PO TID 03/17/20 03/17/20 Cephalexin [Keflex] 500 mg PO BID #10 capsule 03/17/20 Cholecalciferol (Vitamin D3) 0 mcg PO DAILY 03/17/20 03/17/20 [Vitamin D3] Dexamethasone [Decadron] 0.75 mg PO BID 03/17/20 03/17/20 Digoxin [Lanoxin] 0 mcg PO ONCE 03/17/20 03/17/20 Diphenhydramine HCl [Allergy 12.5 mg PO Q6H PRN #240 ml 03/17/20 Relief] Ferrous Gluconate 240 mg PO DAILY #30 tablet 03/17/20 Fluconazole [Diflucan] 150 mg PO Q3D #3 tablet 03/17/20 Gabapentin 300 mg PO QDDINNER 03/17/20 03/17/20 Gabapentin 300 mg PO QDLUNCH 03/17/20 03/17/20 Hydrocodone/Acetaminophen [[place] 1 each PO Q6H PRN #20 tablet 03/17/20 5-325 Tablet] Lidocaine Viscous 2% [Xylocaine 5 ml PO Q4H PRN #100 ml 03/17/20 Viscous 2%] Multivit-Min/Iron/Folic Acid/K 1 each PO DAILY 03/17/20 03/17/20 [One Daily Women's Multivitamin] Torsemide 20 mg PO DAILY 03/17/20 03/17/20 amLODIPine [Norvasc] 10 mg PO DAILY 03/17/20 03/17/20 dexAMETHasone [Decadron] 4 mg PO DAILY #5 tablet 03/17/20 - Allergies Allergies/Adverse Reactions: Allergies Allergy/AdvReac Type Severity Reaction Status Date / Time codeine AdvReac Intermediate Hallucinati Verified 03/17/20 09:28 ons - Social History Does the pt smoke?: No Does the pt have substance abuse?: No PD ED PE NORMAL - Vitals Vital signs reviewed: Yes - General General: Alert and oriented X 3, Well developed/nourished, Other (Appears uncomfortable due to mouth pain) - HEENT HEENT: Ears normal, Dentition benign, Other (The lips externally are normal except looking a bit dry. The gum shows spots of redness and irritation and swelling. The top front of the tongue has a patch of redness and mild ulcerative change. There are areas of redness and inflammation confluently on the soft palate and back of the throat.). No: Moist mucous membranes - Neck Neck: Supple, no meningeal sign, No adenopathy (The neck is without any adenopathy. There is no focal swelling.) - Cardiac Cardiac: RRR, No murmur - Respiratory Respiratory: Clear bilaterally - Abdomen Abdomen: Soft, Non tender - Derm Derm: Normal color, Warm and dry, No rash - Extremities Extremities: No deformity, No tenderness to palpate, Normal ROM s pain, No edema, No calf tenderness / cord - Neuro Neuro: Alert and oriented X 3, No motor deficit, Normal speech - Psych Psych: Normal mood, Normal affect Results - Vitals Vitals: Vital Signs - 24 hr 03/17/20 03/17/20 03/17/20 09:28 11:30 13:00 Temperature 36.7 C Heart Rate 77 67 68 Respiratory 20 16 18 Rate Blood Pressure 113/71 112/51 L 104/58 L O2 Saturation 97 99 94 Oxygen O2 Source [With Activity] Room air O2 Source [Without Activity] Room air O2 Source Room air - Labs Labs: Laboratory Tests 03/17/20 03/17/20 03/17/20 09:50 09:50 09:50 WBC 8.0 RBC 3.42 L Hgb 7.9 L Hct 27.0 L MCV 78.9 L MCH 23.1 L MCHC 29.3 L RDW 17.1 H Plt Count 410 MPV 9.1 Neut # (Auto) 6.7 H Lymph # (Auto) 0.7 L [place] # (Auto) 0.5 Eos # (Auto) 0.0 Baso # (Auto) 0.0 Absolute Nucleated RBC 0.00 Nucleated RBC % 0.0 Sodium 139 Potassium 4.3 Chloride 98 L Carbon Dioxide 31 Anion Gap 10.0 BUN 59 H Creatinine 1.8 H Estimated GFR (MDRD) 27 L Glucose 160 H Calcium 8.3 L Magnesium 2.4 Iron 31 TIBC 231 L % Saturation 13 L Transferrin 165 L Total Bilirubin 0.6 AST 73 H ALT 129 H Alkaline Phosphatase 98 Total Protein 5.3 L Albumin 2.2 L Globulin 3.1 Albumin/Globulin Ratio 0.7 L Lipase 29 PD MEDICAL DECISION MAKING - ED course Complexity details: re-evaluated patient (She states she is feeling much better after medications here including a GI cocktail and IV meds. She is drinking water readily through a straw. She states she was hungry and was given a small snack. She felt comfortable sitting upward and did not feel lightheaded. She would like to go home.), considered differential (The patient has mainly throat and oral pain limiting her oral intake. Evaluation looks to be possibly candidal now as well though no obvious discharge or plaques. She does sound dehydrated. We will give IV fluids and medications to help with the pain and check labs), d/w patient ED course: Referencing up to date online suggested treatment of a stomatitis initially with oral or oral systemic steroids along with antihistamines and topical numbing. If worsening to consider most commonly candidal/fungal secondary infections and possibly bacterial. Antiviral medicines were not recommended as typically not herpetic or amenable to antivirals. Departure - Departure Disposition: 01 Home, Self Care Clinical Impression: Stomatitis and mucositis, Dehydration, Throat pain in adult Iron deficiency anemia Qualifiers: Iron deficiency anemia type: unspecified iron deficiency Qualified Code(s): D50.9 - Iron deficiency anemia, unspecified Condition: Stable Record reviewed to determine appropriate education?: Yes Follow-Up: Paul Myers MD [Primary Care Provider] - Prescriptions: Diphenhydramine HCl [Allergy Relief] 12.5 mg PO Q6H PRN #240 ml PRN Reason: Allergy Symptoms dexAMETHasone [Decadron] 4 mg PO DAILY #5 tablet Fluconazole [Diflucan] 150 mg PO Q3D #3 tablet Ferrous Gluconate 240 mg PO DAILY #30 tablet Cephalexin [Keflex] 500 mg PO BID #10 capsule Hydrocodone/Acetaminophen [[place] 5-325 Tablet] 1 each PO Q6H PRN #20 tablet PRN Reason: Pain Lidocaine Viscous 2% [Xylocaine Viscous 2%] 5 ml PO Q4H PRN #100 ml PRN Reason: Pain Comments: Use the lidocaine 5 mL along with 5 mL of the of the diphenhydramine every 4-6 hours if needed for the pains in the mouth. To that add Tylenol or hydrocodone if needed for pain. Also add Decadron steroid for inflammation daily. There may be some fungal or bacterial involvement to it now as well so take the Diflucan as well as Keflex as prescribed. You are also iron deficient anemic so add a iron supplement daily. Follow-up with your primary care in the next 2 to 3 days, call for an appointment. Small frequent fluids for hydration and initially nonacidic and bland food such as pastas rice crackers breads etc. so it does not irritate the throat as much. Discharge Date/Time: 03/17/20 13:23
[2020-03-17 09:58] LABS: BASOPHILS % (AUTO) 0.1 %; HGB - HEMOGLOBIN 7.9 g/dL (12.0-16.0); LYMPHOCYTES # (AUTO) 0.7 10^3/uL (1.5-3.5); LYMPHOCYTES % (AUTO) 8.4 %; MEAN CORPUSCULAR HEMOGLOBIN 23.1 pg (27.0-31.0); MEAN CORPUSCULAR HGB CONC 29.3 g/dL (32.0-36.0); MEAN CORPUSCULAR VOLUME 78.9 fL (81.0-99.0); MEAN PLATELET VOLUME 9.1 fL (7.9-10.8); MONOCYTES # (AUTO) 0.5 10^3/uL (0.0-1.0); MONOCYTES % (AUTO) 6.2 %; NEUTROPHILS # (AUTO) 6.7 10^3/uL (1.5-6.6); NEUTROPHILS % (AUTO) 84.4 %; PLT - PLATELET COUNT 410 10^3/uL (130-450); RED BLOOD COUNT 3.42 10^6/uL (4.20-5.40); RED CELL DISTRIBUTION WIDTH 17.1 % (12.0-15.0)
[2020-03-17 10:13] LABS: ALBUMIN 2.2 g/dL (3.2-5.5); ALBUMIN/GLOBULIN RATIO 0.7 (1.0-2.2); BILIRUBIN,TOTAL 0.6 mg/dL (0.2-1.0); CALCIUM 8.3 mg/dL (8.5-10.3); CREATININE 1.8 mg/dL (0.4-1.0); MAGNESIUM 2.4 mg/dL (1.7-2.8); TOTAL PROTEIN 5.3 g/dL (6.7-8.2)
[2020-03-17 11:53] LABS: % IRON SATURATION 13 % (20-50); IRON 31 ug/dL (28-170); TOTAL IRON BINDING CAPACITY 231 ug/dL (250-450); TRANSFERRIN 165 mg/dL (192-382)
[2020-03-17] MEDS ORDERED: MAG HYDROX/AL HYDROX/SIMETH 30 ML UDC PO STA (12:25)
[2020-03-17] MEDS ORDERED: FLUCONAZOLE 100 MG TABLET PO STA (12:25)
[2020-03-17] MEDS ORDERED: FAMOTIDINE 20 MG TABLET PO STA (12:25)
[2020-03-17 13:13] VITALS: BP 104/58
== END 2020-03-17 13:23 | disposition home or self-care (01) ==
LOC: EDUNIT# → ED 09:20
DX: K12.1 Other forms of stomatitis (principal); K12.30 Oral mucositis (ulcerative), unspecified; E86.0 Dehydration; R07.0 Pain in throat; D50.9 Iron deficiency anemia, unspecified; I10 Essential (primary) hypertension
CPT/HCPCS: 36415; 80053; 83540; 83690; 83735; 84466; 85025; 96361; 96374; 96375; 99284; 99285; A9270

== ENCOUNTER 2020-04-23 13:33 | Outpatient (CLI) | payer MEDICARE, OTHER ==
[2020-04-23 14:07] LABS: BASOPHILS % (AUTO) 0.4 %; EOSINOPHILS % (AUTO) 0.1 %; HGB - HEMOGLOBIN 11.4 g/dL (12.0-16.0); LYMPHOCYTES # (AUTO) 1.1 10^3/uL (1.5-3.5); MEAN CORPUSCULAR HEMOGLOBIN 27.7 pg (27.0-31.0); MEAN CORPUSCULAR HGB CONC 30.7 g/dL (32.0-36.0); MEAN CORPUSCULAR VOLUME 90.3 fL (81.0-99.0); MEAN PLATELET VOLUME 8.4 fL (7.9-10.8); MONOCYTES # (AUTO) 0.5 10^3/uL (0.0-1.0); MONOCYTES % (AUTO) 4.6 %; NEUTROPHILS # (AUTO) 9.5 10^3/uL (1.5-6.6); NEUTROPHILS % (AUTO) 84.5 %; PLT - PLATELET COUNT 401 10^3/uL (130-450); RED BLOOD COUNT 4.11 10^6/uL (4.20-5.40); RED CELL DISTRIBUTION WIDTH 22.8 % (12.0-15.0); WHITE BLOOD COUNT 11.3 x10^3/uL (4.8-10.8)
[2020-04-23 14:19] LABS: CALCIUM 9.2 mg/dL (8.5-10.3); CREATININE 1.4 mg/dL (0.4-1.0)
[2020-04-23 15:01] LABS: RBC MORPHOLOGY (MULTIPLE) 4+ ANISOCYTOSIS (NORMAL)
== END 2020-04-23 13:34 | disposition home or self-care (01) ==
LOC: LAB 13:33
PROVIDERS: ATTEND Internal Medicine Cardiovascular Disease
DX: I50.32 Chronic diastolic (congestive) heart failure (principal)
CPT/HCPCS: 36415; 80048; 85025

== ENCOUNTER 2020-05-08 08:00 | Outpatient (CLI) | payer MEDICARE, OTHER ==
[2020-05-08 18:27] LABS: CALCIUM 8.9 mg/dL (8.5-10.3); CREATININE 1.2 mg/dL (0.4-1.0)
== END 2020-05-08 08:01 | disposition home or self-care (01) ==
LOC: LAB.WCP 08:00
PROVIDERS: ATTEND Family Medicine
DX: I27.20 Pulmonary hypertension, unspecified (principal); N18.3 Chronic kidney disease, stage 3 (moderate)
CPT/HCPCS: 36415; 80048

== ENCOUNTER 2020-06-18 12:57 | Day surgery (SDC) | payer MEDICARE, OTHER ==
[2020-06-18] MEDS ORDERED: LACTATED RINGERS 1,000 ML IV ONE ×2 (13:23→17:56)
--- NOTE | 2020-06-18 14:54 | ANESTHESIA ---
Pre-Anesthesia VS, & Labs - Diagnosis anemia, hx of polyps - Procedure colonoscopy Vital Signs: Temp Pulse Resp BP Pulse Ox 36.8 C 98 20 162/86 H 96 06/18/20 13:14 06/18/20 13:14 06/18/20 13:14 06/18/20 13:14 06/18/20 13:14 Height: 5 ft 2 in Weight (kg): 84 kg Body Mass Index: 33.8 BMI Classification: Obese - NPO >8 hours - Is Patient ?: No - Lab Results Lab results reviewed: Yes Home Medications and Allergies Home Medications: Ambulatory Orders Celecoxib [CeleBREX] 100 mg PO BID 06/05/20 Famotidine 40 mg PO DAILY 06/05/20 Lactobacillus Acidophilus [Probiotic Acidophilus] 1 each PO DAILY 06/05/20 Losartan [Cozaar] 25 mg PO BID 06/05/20 Gabapentin 600 mg PO BID 08/27/14 Hydroxychloroquine Sulfate 200 mg PO BID 08/27/14 PARoxetine HCL [Paroxetine HCl] 10 mg PO QPM 08/27/14 Acetaminophen [Tylenol] 650 mg PO TID 03/17/20 Dexamethasone [Decadron] 0.75 mg PO QPM 03/17/20 Gabapentin 300 mg PO QPM 03/17/20 Multivit-Min/Iron/Folic Acid/K [One Daily Women's Multivitamin] 1 each PO DAILY 03/17/20 Torsemide 40 mg PO DAILY 03/17/20 Celecoxib [CeleBREX] 100 mg PO BID 06/05/20 Famotidine 40 mg PO DAILY 06/05/20 Lactobacillus Acidophilus [Probiotic Acidophilus] 1 each PO DAILY 06/05/20 Losartan [Cozaar] 25 mg PO BID 06/05/20 Allergies/Adverse Reactions: Allergies Allergy/AdvReac Type Severity Reaction Status Date / Time codeine AdvReac Intermediate Rash, Verified 06/18/20 13:28 nausea Anes History & Medical History - Anesthetic History Anesthesia Complications: reports: No previous complications Family history of Anesthesia Complications: Denies Family history of Malignant Hyperthermia: Denies - Medical History Cardiovascular: reports: Hypertension, Murmur Pulmonary: reports: None Gastrointestinal: reports: Colon polyps Urinary: reports: Incontinence Musculoskeletal: reports: Osteoarthritis, Fibromyalgia, Rheumatoid arthritis Endocrine/Autoimmune: reports: None Skin: reports: None - Surgical History General: Appendectomy, Colonoscopy Eyes Ears Nose Throat (EENT): Cataracts, Tonsil/Adenoidectomy Urologic: Bladder surgery Gynecologic: Hysterectomy Orthopedic: Hip replacement, Knee replacement, Shoulder arthroplasty, Spine surgery Exam General: Alert, Oriented x3, Cooperative Dental: WNL Mouth Openin Fingerbreadth Neck Mobility: Normal Mallampati classification: II Thyromental Distance: greater than 6 cm Respiratory: Lungs clear, Normal breath sounds, No respiratory distress Cardiovascular: Regular rate Neurological: Normal speech Mental/Cognitive Status: Alert/Oriented X3, Normal for patient Cognitive Status: Within normal limits Plan Anesthesia Type: MAC Consent for Procedure(s) Verified and Reviewed: Yes Code Status: Attempt Resuscitation ASA classification: 2-Mild systemic disease Is this case an emergency?: No
[2020-06-18] MEDS ORDERED: MIDAZOLAM 2 MG/2 ML VIAL IVP ONE (17:07)
[2020-06-18] MEDS ORDERED: PROPOFOL 200 MG/20 ML VIAL IVP ONE (17:07)
[2020-06-18 18:15] VITALS: BP 172/93
--- NOTE | 2020-06-18 18:41 | ANESTHESIA POST OP EVALUATION ---
Anesthesia Post Eval - Post Anesthesia Eval Vitals: Last Vital Signs Temp 37.1 C 06/18/20 18:15 Pulse 73 06/18/20 18:15 Resp 16 06/18/20 18:15 BP 172/93 H 06/18/20 18:15 Pulse Ox 99 06/18/20 18:15 CV Function Including HR & BP: positive: Stable Pain Control: positive: Satisfactory Nausea & Vomiting: positive: Negative Mental Status: positive: Baseline Respiratory Status: Airway Patent Hydration Status: Satisfactory Anesthesia Complications: positive: None
== END 2020-06-18 12:58 | disposition home or self-care (01) ==
LOC: SDS 12:57
PROVIDERS: ATTEND Surgery
PROC: 0DBK8ZZ Excision of Ascending Colon, Via Natural or Artificial Opening Endoscopic (ICD-10-PCS; principal; 2020-06-18 12:45)
DX: D12.2 Benign neoplasm of ascending colon (principal); D12.0 Benign neoplasm of cecum; D50.9 Iron deficiency anemia, unspecified; I12.9 Hypertensive chronic kidney disease with stage 1 through stage 4 chronic kidney disease, or unspecified chronic kidney disease; N18.30 Chronic kidney disease, stage 3 unspecified; I27.20 Pulmonary hypertension, unspecified; E78.5 Hyperlipidemia, unspecified; R01.1 Cardiac murmur, unspecified; M06.9 Rheumatoid arthritis, unspecified; M79.7 Fibromyalgia; F32.9 Major depressive disorder, single episode, unspecified; E66.3 Overweight; Z68.32 Body mass index [BMI] 32.0-32.9, adult; Z80.0 Family history of malignant neoplasm of digestive organs; Z79.82 Long term (current) use of aspirin; Z79.52 Long term (current) use of systemic steroids; Z79.899 Other long term (current) drug therapy
CPT/HCPCS: 45385; J7120

== ENCOUNTER 2020-10-09 08:00 | Outpatient (CLI) | payer MEDICARE, OTHER ==
[2020-10-09 16:33] LABS: BASOPHILS # (AUTO) 0.2 10^3/uL (0.0-0.1); BASOPHILS % (AUTO) 1.7 %; EOSINOPHILS # (AUTO) 0.4 10^3/uL (0.0-0.7); EOSINOPHILS % (AUTO) 4.4 %; HGB - HEMOGLOBIN 9.5 g/dL (12.0-16.0); LYMPHOCYTES # (AUTO) 2.2 10^3/uL (1.5-3.5); LYMPHOCYTES % (AUTO) 22.1 %; MEAN CORPUSCULAR HEMOGLOBIN 28.5 pg (27.0-31.0); MEAN CORPUSCULAR HGB CONC 30.4 g/dL (32.0-36.0); MEAN CORPUSCULAR VOLUME 93.7 fL (81.0-99.0); MEAN PLATELET VOLUME 7.9 fL (7.9-10.8); MONOCYTES # (AUTO) 0.8 10^3/uL (0.0-1.0); MONOCYTES % (AUTO) 7.9 %; NEUTROPHILS # (AUTO) 6.3 10^3/uL (1.5-6.6); NEUTROPHILS % (AUTO) 63.7 %; PLT - PLATELET COUNT 277 10^3/uL (130-450); RED BLOOD COUNT 3.33 10^6/uL (4.20-5.40); RED CELL DISTRIBUTION WIDTH 15.1 % (12.0-15.0); WHITE BLOOD COUNT 9.9 x10^3/uL (4.8-10.8)
[2020-10-09 17:07] LABS: ALBUMIN 2.9 g/dL (3.2-5.5); ALBUMIN/GLOBULIN RATIO 1.1 (1.0-2.2); BILIRUBIN,TOTAL 0.4 mg/dL (0.2-1.0); CALCIUM 9.2 mg/dL (8.5-10.3); CREATININE 2.4 mg/dL (0.4-1.0); CRP - C-REACTIVE PROTEIN 2.3 mg/dL (0-1.0); TOTAL PROTEIN 5.5 g/dL (6.7-8.2)
== END 2020-10-09 23:59 | disposition home or self-care (01) ==
LOC: LAB 08:00
PROVIDERS: ATTEND Internal Medicine Infectious Disease
DX: T84.54XA Infection and inflammatory reaction due to internal left knee prosthesis, initial encounter (principal)
CPT/HCPCS: 36415; 80053; 82550; 85025; 86140

== ENCOUNTER 2020-10-23 16:29 | Outpatient (CLI) | payer MEDICARE, OTHER ==
[2020-10-23 16:53] LABS: BASOPHILS # (AUTO) 0.1 10^3/uL (0.0-0.1); BASOPHILS % (AUTO) 1.6 %; EOSINOPHILS # (AUTO) 0.7 10^3/uL (0.0-0.7); HGB - HEMOGLOBIN 9.1 g/dL (12.0-16.0); LYMPHOCYTES # (AUTO) 1.7 10^3/uL (1.5-3.5); LYMPHOCYTES % (AUTO) 19.2 %; MEAN CORPUSCULAR HEMOGLOBIN 27.7 pg (27.0-31.0); MEAN CORPUSCULAR VOLUME 92.1 fL (81.0-99.0); MEAN PLATELET VOLUME 8.6 fL (7.9-10.8); MONOCYTES # (AUTO) 0.6 10^3/uL (0.0-1.0); MONOCYTES % (AUTO) 6.6 %; NEUTROPHILS # (AUTO) 5.8 10^3/uL (1.5-6.6); NEUTROPHILS % (AUTO) 64.2 %; PLT - PLATELET COUNT 340 10^3/uL (130-450); RED BLOOD COUNT 3.29 10^6/uL (4.20-5.40); RED CELL DISTRIBUTION WIDTH 14.6 % (12.0-15.0)
== END 2020-10-23 16:30 | disposition home or self-care (01) ==
LOC: LAB 16:29
PROVIDERS: ATTEND Internal Medicine Infectious Disease
DX: T84.54XA Infection and inflammatory reaction due to internal left knee prosthesis, initial encounter (principal)
CPT/HCPCS: 36415; 80053; 82550; 85025; 86140

== ENCOUNTER 2021-02-04 14:16 | Outpatient (CLI) | payer MEDICARE, OTHER ==
[2021-02-04 14:53] LABS: CALCIUM 9.3 mg/dL (8.5-10.3); CREATININE 1.4 mg/dL (0.4-1.0); POTASSIUM 3.9 mmol/L (3.5-5.0)
== END 2021-02-04 14:17 | disposition home or self-care (01) ==
LOC: LAB 14:16
PROVIDERS: ATTEND Internal Medicine Cardiovascular Disease
DX: I50.32 Chronic diastolic (congestive) heart failure (principal)
CPT/HCPCS: 36415; 80048

== ENCOUNTER 2021-03-05 12:52 | Outpatient (CLI) | payer MEDICARE, OTHER ==
--- NOTE | 2021-03-05 17:34 | XRAY Report ---
PROCEDURE: Chest 2 View X-Ray INDICATIONS: BACTERIAL PNEUMONIA, PRODUCTIVE COUGH TECHNIQUE: 2 view(s) of the chest. COMPARISON: None. FINDINGS: Surgical changes and devices: None. Lungs and pleura: No pleural effusions or pneumothorax. Lungs are clear. Mediastinum: Mediastinal contours are normal. Heart size is normal. Bones and chest wall: No suspicious bony abnormalities. Soft tissues appear unremarkable. IMPRESSION: No pneumonia found. Source of persistent cough is not identified. Reviewed by: Reinier Maciel MD on 03/05/2021 5:33 PM PDT Approved by: Reinier Maciel MD on 03/05/2021 5:33 PM PDT Station ID: [id number]
== END 2021-03-05 23:59 | disposition home or self-care (01) ==
LOC: DI.N 12:52
PROVIDERS: ATTEND Physician Assistant Medical
DX: J15.9 Unspecified bacterial pneumonia (principal)

== ENCOUNTER 2021-04-22 09:44 | Outpatient (CLI) | payer MEDICARE, OTHER ==
[2021-04-22 10:09] LABS: BASOPHILS # (AUTO) 0.1 10^3/uL (0.0-0.1); BASOPHILS % (AUTO) 0.6 %; EOSINOPHILS # (AUTO) 0.1 10^3/uL (0.0-0.7); EOSINOPHILS % (AUTO) 0.8 %; HCT - HEMATOCRIT 31.9 % (37.0-47.0); HGB - HEMOGLOBIN 10.1 g/dL (12.0-16.0); LYMPHOCYTES # (AUTO) 0.6 10^3/uL (1.5-3.5); LYMPHOCYTES % (AUTO) 6.8 %; MEAN CORPUSCULAR HEMOGLOBIN 28.2 pg (27.0-31.0); MEAN CORPUSCULAR HGB CONC 31.7 g/dL (32.0-36.0); MEAN CORPUSCULAR VOLUME 89.1 fL (81.0-99.0); MEAN PLATELET VOLUME 8.7 fL (7.9-10.8); MONOCYTES # (AUTO) 0.6 10^3/uL (0.0-1.0); NEUTROPHILS # (AUTO) 7.6 10^3/uL (1.5-6.6); NEUTROPHILS % (AUTO) 84.2 %; PLT - PLATELET COUNT 237 10^3/uL (130-450); RED BLOOD COUNT 3.58 10^6/uL (4.20-5.40); RED CELL DISTRIBUTION WIDTH 14.3 % (12.0-15.0)
[2021-04-22 10:39] LABS: THYROID STIMULATING HORMONE 7.93 uIU/mL (0.34-5.60)
[2021-04-22 10:48] LABS: ALBUMIN 2.9 g/dL (3.2-5.5); ALKALINE PHOSPHATASE 93 IU/L (42-121); ALT ALANINE AMINOTRANSFERASE 31 IU/L (10-60); AST ASPARTATE AMINOTRANSFERASE 51 IU/L (10-42); BILIRUBIN,TOTAL 0.7 mg/dL (0.2-1.0); CALCIUM 8.7 mg/dL (8.5-10.3); CARBON DIOXIDE - CO2 21 mmol/L (21-32); CHLORIDE 101 mmol/L (101-111); CHOL/HDL RATIO 3.5 (<4.4); CHOLESTEROL 209 mg/dL; GFR - MDRD 6 (>89); GLUCOSE 113 mg/dL (70-100); HDL CHOLESTEROL 60 mg/dL; LDL CHOLESTEROL,CALCULATED 129 mg/dL; LDL/HDL RATIO 2.2 (<4.4); POTASSIUM 5.6 mmol/L (3.5-5.0); SODIUM 136 mmol/L (135-145); TOTAL PROTEIN 5.8 g/dL (6.7-8.2); TRIGLYCERIDES 99 mg/dL; VLDL CHOLESTEROL 20 mg/dL
[2021-04-22 10:52] LABS: BUN - BLOOD UREA NITROGEN 109 mg/dL (6-20)
--- NOTE | 2021-04-22 11:37 | XRAY Report ---
PROCEDURE: Abdomen 2 View X-Ray INDICATIONS: EXCESSIVE SLEEPING,FATIGUE MALAISE,DIARRHEA,LABS TECHNIQUE: 2 views of the abdomen were acquired. COMPARISON: Chest 2 views 03/05/2021. Also, prior CT abdomen/pelvis 07/07/2017. FINDINGS: Surgical changes and devices: Prior unilateral lower lumbosacral spine fusion procedure, on the left. Prior left total hip arthroplasty.. Bowel: No pneumoperitoneum. The bowel gas pattern is normal. Soft tissues: No masses; visualized solid organ contours appear normal in size. No suspicious abdom inal calcifications. Bones: No suspicious bony abnormalities. IMPRESSION: No sign of intestinal obstruction or perforation over the abdomen and pelvis. Note is ma de of relatively large lung volumes perhaps reflecting long-standing COPD. Prior chest plain film [place] ging has also shown flattening of the diaphragms bilaterally. COPD is presumed. Reviewed by: Reinier Maciel MD on 04/22/2021 11:35 AM PDT Approved by: Reinier Maciel MD on 04/22/2021 11:35 AM PDT Station ID: [id number]
[2021-04-22 11:41] LABS: FREE T4 (FREE THYROXINE) 1.34 ng/dL (0.58-1.64)
== END 2021-04-22 09:45 | disposition home or self-care (01) ==
LOC: LAB 09:44 → DI 09:45
PROVIDERS: ATTEND Family Medicine
DX: R91.8 Other nonspecific abnormal finding of lung field (principal); G47.10 Hypersomnia, unspecified; R53.83 Other fatigue; R19.7 Diarrhea, unspecified; I12.9 Hypertensive chronic kidney disease with stage 1 through stage 4 chronic kidney disease, or unspecified chronic kidney disease; N18.32 Chronic kidney disease, stage 3b; D50.9 Iron deficiency anemia, unspecified; I27.20 Pulmonary hypertension, unspecified; M06.9 Rheumatoid arthritis, unspecified; R60.9 Edema, unspecified; M19.90 Unspecified osteoarthritis, unspecified site
CPT/HCPCS: 36415; 80053; 80061; 83721; 84439; 84443; 85025; 85651

== ENCOUNTER 2021-04-23 09:10 | Emergency (ER) | payer MEDICARE, OTHER ==
[2021-04-23] MEDS ORDERED: ELECTROLYTE-A SOLUTION 1,000 ML IV ONE ×3 (09:50→12:15)
[2021-04-23] MEDS ORDERED: ELECTROLYTE-A SOLUTION 1,000 ML IV SCH (10:00)
[2021-04-23 10:07] LABS: BASOPHILS # (AUTO) 0.1 10^3/uL (0.0-0.1); BASOPHILS % (AUTO) 0.6 %; EOSINOPHILS # (AUTO) 0.1 10^3/uL (0.0-0.7); EOSINOPHILS % (AUTO) 1.1 %; HCT - HEMATOCRIT 30.9 % (37.0-47.0); HGB - HEMOGLOBIN 9.7 g/dL (12.0-16.0); LYMPHOCYTES # (AUTO) 0.5 10^3/uL (1.5-3.5); LYMPHOCYTES % (AUTO) 5.6 %; MEAN CORPUSCULAR HEMOGLOBIN 28.1 pg (27.0-31.0); MEAN CORPUSCULAR HGB CONC 31.4 g/dL (32.0-36.0); MEAN CORPUSCULAR VOLUME 89.6 fL (81.0-99.0); MEAN PLATELET VOLUME 9.3 fL (7.9-10.8); MONOCYTES # (AUTO) 0.9 10^3/uL (0.0-1.0); MONOCYTES % (AUTO) 8.9 %; NEUTROPHILS % (AUTO) 83.2 %; PLT - PLATELET COUNT 241 10^3/uL (130-450); RED BLOOD COUNT 3.45 10^6/uL (4.20-5.40); RED CELL DISTRIBUTION WIDTH 14.6 % (12.0-15.0); WHITE BLOOD COUNT 9.6 x10^3/uL (4.8-10.8)
[2021-04-23 10:33] LABS: ALBUMIN 2.7 g/dL (3.2-5.5); ALBUMIN/GLOBULIN RATIO 0.9 (1.0-2.2); BILIRUBIN,TOTAL 0.7 mg/dL (0.2-1.0); CALCIUM 8.6 mg/dL (8.5-10.3); TOTAL PROTEIN 5.7 g/dL (6.7-8.2)
[2021-04-23 10:35] LABS: CREATININE 7.6 mg/dL (0.4-1.0)
[2021-04-23 11:49] LABS: CALCIUM 8.3 mg/dL (8.5-10.3)
[2021-04-23 11:52] LABS: CREATININE 7.5 mg/dL (0.4-1.0); POTASSIUM 6.2 mmol/L (3.5-5.0)
[2021-04-23] MEDS ORDERED: INSULIN REGULAR HUMAN 100 UNIT/1 ML 10 ML MDV SUBQ STA (11:53)
[2021-04-23] MEDS ORDERED: MORPHINE 2 MG/ML CARPUJECT IVP STA ×2 (11:53→21:32)
[2021-04-23] MEDS ORDERED: DEXTROSE 50% ABBOJECT 25 GM/50 ML SYRINGE IVP STA (11:53)
--- NOTE | 2021-04-23 11:59 | ED Physician Documentation ---
History of Present Illness - Stated complaint Stated Complaint: ABD PX/NAUSEA - Chief complaint Chief Complaint: Abd Pain - History obtained from History obtained from: Patient - History of Present Illness Timing: Today Pain level max: 7 Pain level now: 6 Improved by: nothing Worsened by: nothing - Additonal information Additional information: Is an 85-year-old female who presents to the emergency department stating that she had vomiting 2 days ago. Saw her doctor yesterday and had outpatient blood work. Creatinine was found to be 7.0. Told to come here for evaluation. The patient states that she has no longer vomiting. She is not having any abdominal pain or back pain. She states that she has having slight right-sided chest wall pain, worse with palpation and movement, nothing makes it better. She does have a history of chronic renal insufficiency, sees Dr. Ware at [facility] for this. Review of Systems Ten Systems: 10 systems reviewed and negative Constitutional: denies: Fever, Chills Nose: denies: Rhinorrhea / runny nose, Congestion Throat: denies: Sore throat Cardiac: denies: Chest pain / pressure, Palpitations GI: reports: Vomiting (2 days ago, none now), Diarrhea (x1 month) Skin: denies: Rash Musculoskeletal: denies: Neck pain, Back pain Neurologic: denies: Headache PD PAST MEDICAL HISTORY - Past Medical History Past Medical History: Yes Cardiovascular: Hypertension, Murmur Respiratory: None Endocrine/Autoimmune: None GI: Colon polyps : Incontinence HEENT: Chronic vision loss Musculoskeletal: Osteoarthritis, Fibromyalgia, Rheumatoid arthritis Derm: None - Past Surgical History Past Surgical History: Yes General: Appendectomy, Colonoscopy Ortho: Hip replacement, Knee replacement, Shoulder arthroplasty, Spine surgery /FACIALIST: Hysterectomy HEENT: Cataracts, Tonsil/Adenoidectomy - Present Medications Home Medications: Ambulatory Orders Medication Instructions Recorded Confirmed Gabapentin 600 mg PO BID 08/27/14 06/05/20 Hydroxychloroquine Sulfate 200 mg PO BID 08/27/14 06/05/20 PARoxetine HCL [Paroxetine HCl] 10 mg PO QPM 08/27/14 06/05/20 Acetaminophen [Tylenol] 650 mg PO TID 03/17/20 06/05/20 Gabapentin 300 mg PO QPM 03/17/20 06/05/20 Multivit-Min/Iron/Folic Acid/K 1 each PO DAILY 03/17/20 06/05/20 [One Daily Women's Multivitamin] Torsemide 20 mg PO DAILY 03/17/20 06/05/20 Losartan [Cozaar] 50 mg PO BID 06/05/20 06/05/20 - Allergies Allergies/Adverse Reactions: Allergies Allergy/AdvReac Type Severity Reaction Status Date / Time codeine AdvReac Intermediate Rash, Verified 04/23/21 09:22 nausea - Social History Does the pt smoke?: No Smoking Status: Never smoker Does the pt have substance abuse?: No PD ED PE NORMAL - Vitals Vital signs reviewed: Yes - General General: Alert and oriented X 3, No acute distress - HEENT HEENT: Moist mucous membranes - Neck Neck: Supple, no meningeal sign - Cardiac Cardiac: RRR, Strong equal pulses - Respiratory Respiratory: No respiratory distress, Clear bilaterally - Abdomen Abdomen: Soft, Non tender, Non distended, Other (L flank hernia, no incarceration) - Back Back: No CVA TTP, No spinal TTP - Derm Derm: Warm and dry - Extremities Extremities: No calf tenderness / cord - Neuro Neuro: Alert and oriented X 3 - Psych Psych: Normal mood, Normal affect Results - Vitals Vitals: Vital Signs - 24 hr 04/23/21 04/23/21 04/23/21 09:19 11:31 13:13 Temperature 36.4 C L 36.9 C 36.7 C Heart Rate 88 78 78 Respiratory 16 16 20 Rate Blood Pressure 141/59 H 164/82 H 147/67 H O2 Saturation 98 97 96 04/23/21 04/23/21 15:00 17:00 Temperature Heart Rate 75 78 Respiratory 16 16 Rate Blood Pressure 131/68 H 151/91 H O2 Saturation 98 96 Oxygen O2 Source [] Room air O2 Source [] Room air O2 Source Room air - EKG (time done) 1051 Rate: Rate (enter#) (80) Rhythm: NSR [place]: Normal Intervals: Normal [place] QRS: Normal Ischemia: Normal ST segments Computer interpretation: Agree with computer - Labs Labs: Laboratory Tests 04/23/21 04/23/21 04/23/21 10:00 10:00 11:21 WBC 9.6 RBC 3.45 L Hgb 9.7 L Hct 30.9 L MCV 89.6 MCH 28.1 MCHC 31.4 L RDW 14.6 Plt Count 241 MPV 9.3 Neut # (Auto) 8.0 H Lymph # (Auto) 0.5 L [place] # (Auto) 0.9 Eos # (Auto) 0.1 Baso # (Auto) 0.1 Absolute Nucleated RBC 0.00 Nucleated RBC % 0.0 Sodium 135 135 Potassium 6.0 H* 6.2 H* Chloride 100 L 100 L Carbon Dioxide 20 L 22 Anion Gap 15.0 H 13.0 BUN 113 H* 115 H* Creatinine 7.6 H* 7.5 H* Estimated GFR (MDRD) 5 L 5 L Glucose 120 H 121 H Calcium 8.6 8.3 L Total Bilirubin 0.7 AST 39 ALT 26 Alkaline Phosphatase 83 Total Protein 5.7 L Albumin 2.7 L Globulin 3.0 Albumin/Globulin Ratio 0.9 L Lipase 34 Nasal Adenovirus (PCR) Nasal B. parapertussis DNA (PCR) Nasal Coronavir 229E PCR Nasal Coronavir HKU1 PCR Nasal Coronavir NL63 PCR Nasal Coronavir OC43 PCR Nasal Enterovir/Rhinovir PCR Nasal Influenza B PCR Nasal Influenza A PCR Nasal Parainfluen 1 PCR Nasal Parainfluen 2 PCR Nasal Parainfluen 3 PCR Nasal Parainfluen 4 PCR Nasal RSV (PCR) Nasal B.pertussis DNA PCR Nasal C.pneumoniae (PCR) [place] Human Metapneumo PCR Nasal M.pneumoniae (PCR) Nasal SARS-CoV-2 (PCR) 04/23/21 04/23/21 12:30 14:05 WBC RBC Hgb Hct MCV MCH MCHC RDW Plt Count MPV Neut # (Auto) Lymph # (Auto) [place] # (Auto) Eos # (Auto) Baso # (Auto) Absolute Nucleated RBC Nucleated RBC % Sodium 134 L Potassium 6.4 H* Chloride 99 L Carbon Dioxide 21 Anion Gap 14.0 H BUN 74 H Creatinine 7.3 H* Estimated GFR (MDRD) 5 L Glucose 92 Calcium 8.0 L Total Bilirubin AST ALT Alkaline Phosphatase Total Protein Albumin Globulin Albumin/Globulin Ratio Lipase Nasal Adenovirus (PCR) NOT DETECTED Nasal B. parapertussis DNA (PCR) NOT DETECTED Nasal Coronavir 229E PCR NOT DETECTED Nasal Coronavir HKU1 PCR NOT DETECTED Nasal Coronavir NL63 PCR NOT DETECTED Nasal Coronavir OC43 PCR NOT DETECTED Nasal Enterovir/Rhinovir PCR NOT DETECTED Nasal Influenza B PCR NOT DETECTED Nasal Influenza A PCR NOT DETECTED Nasal Parainfluen 1 PCR NOT DETECTED Nasal Parainfluen 2 PCR NOT DETECTED Nasal Parainfluen 3 PCR NOT DETECTED Nasal Parainfluen 4 PCR NOT DETECTED Nasal RSV (PCR) NOT DETECTED Nasal B.pertussis DNA PCR NOT DETECTED Nasal C.pneumoniae (PCR) NOT DETECTED [place] Human Metapneumo PCR NOT DETECTED Nasal M.pneumoniae (PCR) NOT DETECTED Nasal SARS-CoV-2 (PCR) NOT DETECTED - Rads (name of study) cxr Radiology: Final report received, EMP read contemporaneously, See rad report Ct abd/pelvis Radiology: Final report received, EMP read contemporaneously, See rad report Retroperitoneal US Radiology: Final report received, EMP read contemporaneously, See rad report PD MEDICAL DECISION MAKING - ED course Complexity details: reviewed results, re-evaluated patient, considered differential, d/w patient ED course: Patient with acute renal failure, uremia, unclear etiology. CT abdomen and pelvis does show bilateral hydronephrosis, right greater than left but no ureteral stones were visualization of a blockage. Possible urethral stricture? Given that she is not improving with supportive care here, we will transfer to [facility] for further care. She sees Dr. Ware for nephrology the re. A call was placed to [facility] at approximately 1600. We are awaiting a call back at the time of signout. See Dr. Hollis's note for final disposition. This document was made in part using voice recognition software. While efforts are made to proofread this document, sound alike and grammatical errors may occur. CXR IMPRESSION: Cardial megaly and mild congestion. No focal infiltrate, pleural effusion or pneumothorax. CT Abd/pelvis: 1. Moderate to severe right-sided hydronephrosis and mild to moderate left-sided hydronephrosis. Mild to moderate bilateral proximal to mid hydroureter more prominent on the right side. No calcified obstructing renal stone or ureteral stone is seen. No gross external mass compression of the ureter is seen. Finding may represent stricture of bilateral ureter, suggest clinical correlation. No gross abnormality is seen in partially distended urinary bladder. 2. Moderate left pleural effusion and mild to moderate right pleural effusion with bibasilar atelectasis/infiltrates. 3. Hepatomegaly. Cholelithiasis. No CT evidence of acute cholecystitis. 4. Questionable ascending colon and transverse colon wall thickening concerning for mild colitis. No bowel obstruction. No abscess collection. No free fluid or free air. Left lateral abdominal wall defect containing mesenteric fat and multiple small bowel and colon loops without evidence of incarceration. Retroperitoneal US: FINDINGS: Kidneys: Kidneys are normal in size. Right kidney measures 11.7 cm long; left kidney measures 9.8 cm long. Right renal cortical thickness is 1.0 cm; left renal cortical thickness is 1.2 cm. No solid masses left kidney is suboptimally visualized. There is moderate right and mild left hydronephrosis. Or nephrolithiasis. 3.0 x 2.2 x 2.2 cm cyst noted in the superior pole of the right kidney. Bladder: Pre-void bladder volume is 53 mL. Post-void residual not measured. Pre- void images demonstrate no intraluminal masses or stones. On pre-void images, left ureteral jet noted with color Doppler interrogation. (Of note, ureteral jets may not be detectable in up to 25% of cases due to insufficient differences in specific gravity between ureteral and bladder urine). Miscellaneous: No free pelvic fluid. IMPRESSION: 1. Moderate right and mild left hydronephrosis. 2. Right renal cyst. Departure - Departure Disposition: 02 Transfer Acute Care Hosp Clinical Impression: Uremia Acute renal failure Qualifiers: Acute renal failure type: unspecified Qualified Code(s): N17.9 - Acute kidney failure, unspecified Hydronephrosis Qualifiers: Hydronephrosis type: unspecified Qualified Code(s): N13.30 - Unspecified hydronephrosis Condition: Stable
--- NOTE | 2021-04-23 12:17 | XRAY Report ---
PROCEDURE: Chest 1 View X-Ray INDICATIONS: chest pain TECHNIQUE: One view of the chest was acquired. COMPARISON: 03/05/2021 FINDINGS: Surgical changes and devices: Postsurgical changes are again seen in bilateral shoulder joints. Lungs and pleura: No pleural effusions or pneumothorax. Mild pulmonary vascular congestion is seen. No focal infiltrate. Mediastinum: Mediastinal contours appear normal. Heart size is enlarged. Bones and chest wall: No suspicious bony lesions. Overlying soft tissues appear unremarkable. IMPRESSION: Cardial megaly and mild congestion. No focal infiltrate, pleural effusion or pneumothorax. Reviewed by: Brendna Marquez MD on 04/23/2021 12:15 PM PDT Approved by: Brendan Marquez MD on 04/23/2021 12:15 PM PDT Station ID: [id number]
[2021-04-23 13:54] LABS: B. PARAPERTUSSIS- RESP PCR PAN NOT DETECTED; B. PERTUSSIS- RESP PCR PANEL NOT DETECTED; C. PNEUMONIAE- RESP PCR PANEL NOT DETECTED; CORONAVIRUS 229E-RESP PCR NOT DETECTED; CORONAVIRUS HKU1-RESP PCR NOT DETECTED; CORONAVIRUS NL63-RESP PCR NOT DETECTED; CORONAVIRUS OC43-RESP PCR NOT DETECTED; HUMAN METAPNEUMOVIRUS NOT DETECTED; INFLUENZA A- RESP PCR PANEL NOT DETECTED; INFLUENZA B - RESP PCR PANEL NOT DETECTED; M. PNEUMONIAE- RESP PCR PANEL NOT DETECTED; PARAINFLUENZA VIRUS 1 NOT DETECTED; PARAINFLUENZA VIRUS 2 NOT DETECTED; PARAINFLUENZA VIRUS 3 NOT DETECTED; PARAINFLUENZA VIRUS 4 NOT DETECTED; RHINOVIRUS/ENTEROVIRUS NOT DETECTED; RSV- RESP PCR PANEL NOT DETECTED; SARS-CoV-2 -RESP PCR PANEL NOT DETECTED
[2021-04-23 14:33] LABS: CREATININE 7.3 mg/dL (0.4-1.0); POTASSIUM 6.4 mmol/L (3.5-5.0)
--- NOTE | 2021-04-23 15:21 | CT Report ---
PROCEDURE: Abdomen/Pelvis WO INDICATIONS: new renal failure TECHNIQUE: After oral contrast ingestion, 5 mm thick sections acquired from the diaphragms to the symphysis. 5 mm coronal and sagittal reformats were then performed. For radiation dose reduction, the following w as used: automated exposure control, adjustment of mA and/or kV according to patient size. COMPARISON: CT of abdomen and pelvis dated 07/07/2017. FINDINGS: Image quality: Excellent. ABDOMEN: Lung bases: There is moderate left pleural effusion and small to moderate right pleural effusion with adjacent atelectasis/infiltrates in posterior aspect of bilateral lower lobes. Heart size is normal. Moderate coronary atherosclerotic calcifications are seen. Solid organs: There is hepatomegaly. Spleen is normal in size. Gallbladder contains multiple calcifie d stones in its dependent portion. No gross gallbladder wall thickening or pericholecystic fluid. Pa ncreas is normal in contours. No adrenal nodules. Bilateral kidneys are normal in size. Markedly enl arged right renal collecting system and right renal pelvis is seen with prominent proximal to mid rig ht ureter. More distal right ureter is within normal limits. No definite obstructing renal stone or u reteral stone is identified. There is also mild to moderate prominence of left renal collecting syste m and most proximal portion of left ureter. Mild bilateral perinephric fat stranding is seen. No obst ructing left renal stone or ureteral stone is seen. Peritoneum and bowel: There is no evidence of bowel obstruction. Questionable ascending colon and tra nsverse colon wall thickening is seen without significant mesenteric fat stranding. No gross small [place] or gastric wall thickening is noted. No abscess collection. No free fluid or free air. Nodes and vessels: No retroperitoneal or mesenteric adenopathy by size criteria. Aorta and inferior vena cava are normal in caliber. Moderate atherosclerotic calcifications in the abdominal aorta is seen. Miscellaneous: Left lateral abdominal wall defect is seen containing mesenteric fat and multiple smal l bowel and colon loops. PELVIS: Genitourinary: Bladder wall thickness is normal. Miscellaneous: No inguinal hernias or adenopathy. Bones: No suspicious bony lesions. No vertebral body compression fractures. Patient is status post left hip arthroplasty. There is also prior left-sided posterior fusion of lower lumbar spine. IMPRESSION: 1. Moderate to severe right-sided hydronephrosis and mild to moderate left-sided hydronephrosis. Mild to moderate bilateral proximal to mid hydroureter more prominent on the right side. No calcified obs tructing renal stone or ureteral stone is seen. No gross external mass compression of the ureter is s een. Finding may represent stricture of bilateral ureter, suggest clinical correlation. No gross abno rmality is seen in partially distended urinary bladder. 2. Moderate left pleural effusion and mild to moderate right pleural effusion with bibasilar atelecta sis/infiltrates. 3. Hepatomegaly. Cholelithiasis. No CT evidence of acute cholecystitis. 4. Questionable ascending colon and transverse colon wall thickening concerning for mild colitis. No bowel obstruction. No abscess collection. No free fluid or free air. Left lateral abdominal wall defe ct containing mesenteric fat and multiple small bowel and colon loops without evidence of incarcerati on. Reviewed by: Brendan Marquez MD on 04/23/2021 3:20 PM PDT Approved by: Brendan Marquez MD on 04/23/2021 3:20 PM PDT Station ID: [id number]
--- NOTE | 2021-04-23 16:10 | Ultrasound Report ---
PROCEDURE: Retroperitoneal INDICATIONS: acute renal failure TECHNIQUE: Real-time scanning was performed of the retroperitoneal organs, with image documentation. COMPARISON: None. FINDINGS: Kidneys: Kidneys are normal in size. Right kidney measures 11.7 cm long; left kidney measures 9.8 c m long. Right renal cortical thickness is 1.0 cm; left renal cortical thickness is 1.2 cm. No solid masses left kidney is suboptimally visualized. There is moderate right and mild left hydronephrosis. Or nephrolithiasis. 3.0 x 2.2 x 2.2 cm cyst noted in the superior pole of the right kidney. Bladder: Pre-void bladder volume is 53 mL. Post-void residual not measured. Pre-void images demons trate no intraluminal masses or stones. On pre-void images, left ureteral jet noted with color Doppl er interrogation. (Of note, ureteral jets may not be detectable in up to 25% of cases due to insuffi cient differences in specific gravity between ureteral and bladder urine). Miscellaneous: No free pelvic fluid. IMPRESSION: 1. Moderate right and mild left hydronephrosis. 2. Right renal cyst. Reviewed by: Renae Adame MD, PhD on 04/23/2021 4:08 PM PDT Approved by: Renae Adame MD, PhD on 04/23/2021 4:08 PM PDT Station ID: [id number]
[2021-04-23] MEDS ORDERED: DEXTROSE 5% 1,000 ML IV STA (20:11)
[2021-04-23] MEDS ORDERED: INSULIN REGULAR HUMAN 100 UNIT/1 ML 10 ML MDV IVP STA (20:11)
[2021-04-23 21:00] LABS: MAGNESIUM 3.2 mg/dL (1.7-2.8); PHOSPHORUS 7.8 mg/dL (2.5-4.6)
[2021-04-23 21:01] LABS: CALCIUM 8.1 mg/dL (8.5-10.3)
[2021-04-23 21:03] LABS: CREATININE 7.4 mg/dL (0.4-1.0); POTASSIUM 6.4 mmol/L (3.5-5.0)
[2021-04-23 21:09] VITALS: BP 177/79
[2021-04-23] MEDS ORDERED: FAMOTIDINE 20 MG/2 ML VIAL IVP STA (21:32)
--- NOTE | 2021-04-24 01:00 | ED Physician Documentation ---
ED Addendum - Addendum Addendum: 04/24/21 00:54The patient's blood pressure and heart monitor remained stable. She had been here for 10 hours or so so I repeated her EKG which still had normal QRS. Mild peaked T waves in the anterior leads otherwise no acute process. Repeat chemistry did not show any worsening of her potassium more creatinine. However no improvement. She was given repeat a dosing of insulin in conjunction with a low volume dextrose infusion to help reduce some of the potassium. She still has not had any urine output. [facility] nursing so provides her subsequently called back saying they had a bed available for her. I talked with the hospitalist Dr. Thakur who asked that I talk with both nephrology and urology. I talked with the patient's billing auditor who certainly agreed the patient needed to come over with possibility of needing dialysis urgently. I talked with Dr. Schmitt on for urology and discussed the findings of hydronephrosis and hydroureter in the proximal ureters without an obvious obstructive cause. He felt the patient may need stents placed and would see the patient as well. The hospitalist Dr. Thakur would now accept the patient in transfer. The patient was transferred out in stable condition. Disposition: Transferred to acute care hospital for higher level of service
== END 2021-04-23 23:50 | disposition short-term general hospital (02) ==
LOC: ED 09:10
DX: N17.9 Acute kidney failure, unspecified (principal); N13.30 Unspecified hydronephrosis; N28.1 Cyst of kidney, acquired; I10 Essential (primary) hypertension; Z20.822 Contact with and (suspected) exposure to COVID-19
CPT/HCPCS: 36415; 51798; 71045; 74176; 76770; 80048; 80053; 83690; 83735; 84100; 85025; 87631; 93005; 96361; 96365; 96366; 96375; 99284; 99285; J1815; 0202U; 81001; 81003; 87086

== ENCOUNTER 2021-04-24 | Outpatient (CLI) | payer MEDICARE, OTHER | END 2021-04-24 00:01 | disposition short-term general hospital (02) | LOC: EMS | PROVIDERS: ATTEND Emergency Medicine | DX: N17.9 Acute kidney failure, unspecified (principal); R53.1 Weakness; E87.5 Hyperkalemia | CPT/HCPCS: A0425; A0428 ==